=== PATIENT | female | born 1995 | race Caucasian/White ===

== ENCOUNTER 2019-08-13 19:40 | Emergency (ER) | payer SELFPAY ==
[2019-08-13 19:49] VITALS: BP 114/77; PULSE 104; RESP 17; TEMP 36.9; O2SAT 98; BMI 21.4
--- NOTE | 2019-08-13 20:08 | ED_ITS ---
Entered by Elis Alcantar, acting as scribe for Hollie Ferrera Aug 13, 2019 19:40 HPI - Fever General: Chief Complaint: Fever Stated Complaint: chills/migraine/congestion x 4 days Time Seen by Provider: 08/13/19 20:06 Source: patient Mode of arrival: ambulatory Limitations: no limitations History of Present Illness: HPI Narrative: 23 yo f came to the er for m igraine, fever, cough and congestion. Onset was 4 days ago. Pt states that she has not had a migraine before. Pt states that her cough is productive and green colored. MD elicited complaint: fever and other Onset (ago): day(s) (4 days ago) Context: sick contacts Exacerbating factors: nothing Relieving factors: nothing Associated symptoms: Reports chills and cough; Deny abdominal pain, back/flank pain, chest pain, confusion, diarrhea, dysuria, extremity pain, nausea or vomiting Review of Systems General: Reports: other (negative unless marked) Const: Reports: fever, chills, body aches, fatigue and malaise; Denies: diaphoresis Eyes: Denies: change in vision or blurry vision ENMT: Denies: throat pain, painful swallowing, hoarseness, ear pain, ear discharge, Change in hearing or nasal discharge Card: Denies: chest pain, palpitations, irregular heart rhythm, syncope, pre- syncope, shortness of breath on exertion or shortness of breath when lying down Resp: Reports: productive cough and chest congestion; Denies: shortness of breath, wheezing or coughing up blood GI: Denies: abdominal pain, nausea, vomiting, vomiting blood, coffee grounds in vomit, diarrhea, constipation, cramping, blood in stool or black tarry stool : Denies: flank pain, painful urination, urinary frequency, urinary urgency, decreased urine ouput, urinary incontinence or blood in urine Musc: Denies: neck pain, back pain, extremity pain, extremity swelling, joint pain, joint swelling, joint warmth or joint stiffness Skin/Breast: Denies: rash, skin tenderness or yellow skin Neuro: Denies: numbness in extremities, weakness in extremities, changes in sensation, lack of coordination, difficulty walking, dizziness, vertigo or confusion Endo: Denies: excessive thirst, tired all the time, cold intolerance, excessive sweating, flushing or hot flashes Nithin/Lymph: Denies: easy bruising, easy bleeding, petechiae or enlarged lymph nodes All/Imm: Denies: hives, throat swelling, tongue swelling, facial swelling or acute wheezing PFSH ED PFSH: Social History Smoking and tobacco status: never smoked Physical Exam Const: COMMON NORMALS: no apparent distress, oriented x3, no limitations, healthy appearing and well nourished EXAM LIMITATIONS: no altered mental status GENERAL APPEARANCE: cooperative, well kempt and well developed ORIENTATION/CONSCIOUSNESS: Yes awake HENMT: COMMON NORMALS: normocephalic, head/scalp atraumatic, hearing grossly normal bilaterally, external ears normal, EAC's normal, external nose normal and moist oral mucous membranes HEAD & SCALP: normal to inspection, normocephalic and atraumatic FACE & SINUS: normal facial exam and face symmetric NOSE: external nose normal and nares normal EXTERNAL EAR: Yes external ears normal EXTERNAL AUDITORY CANAL: EAC's normal MOUTH: oral and palatal mucosa normal and tongue normal Eye: COMMON NORMALS: PERRL, EOMs intact bilaterally, conjunctivae normal and no scleral icterus GENERAL EYE: normal appearance of both eyes and normal light reflex CONJUNCTIVA: Yes conjunctivae normal SCLERA: sclerae normal CORNEA: Yes corneas normal PUPIL: Yes PERRL DIRECT OPHTHALMOSCOPY: Yes normal light reflex Neck/C-Spine: COMMON NORMALS: full ROM, no lymphadenopathy, supple, no meningeal signs and no JVD GENERAL: Yes normal visual inspection and Yes trachea midline CERVICAL SPINE: Yes cervical ROM normal Chest: COMMONS NORMALS: inspection of chest normal and palpation of chest normal Resp: COMMON NORMALS: normal respiratory effort, no retractions, no use of accessory muscles and clear to auscultation bilaterally EFFORT & INSPECTION: Yes able to speak in complete sentences AUSCULTATION: clear to auscultation bilaterally Cardio: COMMON NORMALS: no JVD, regular rate, regular rhythm, S1 normal heart sound, S2 normal heart sound, no gallops, no clicks, no murmurs and no rub JUGULAR VENOUS DISTENTION: no JVD RATE: regular rate RHYTHM: regular rhythm HEART SOUNDS: S1 normal and S2 normal GI: COMMON NORMALS: soft to palpation, non-tender, no hepatosplenomegaly and no masses INSPECTION: Yes normal to inspection PALPATION: Yes soft and Yes no hepatosplenomegaly : COMMON NORMALS: Yes no CVA tenderness BLADDER/KIDNEY EXAM: Yes no CVA tenderness Back/Pelvis: COMMON NORMALS: no CVA tenderness, thoracic and lumbar spine normal to inspection, no thoracic nor lumbar tenderness and thoraco-lumbar ROM normal Extremity: COMMON NORMALS: normal to inspection, full ROM, normal capillary refill, no joint enlargement, no clubbing, cyanosis or edema and no calf tenderness Neuro: COMMON NORMALS: oriented x3, CN's II-XII intact bilaterally, moves all extremities, no focal motor deficits and no sensory deficits noted MENINGEAL SIGNS: Yes no meningeal signs Psych: COMMON NORMALS: mental status grossly normal, thought process normal, cooperative, affect normal, speech normal and activity/motor behavior normal APPEARANCE: Yes well kempt SPEECH: Yes normal speech THOUGHT PROCESS: normal thought process Skin: COMMON NORMALS: no rashes or lesions noted, skin turgor normal, no jaundice, no petechiae and no mottling GENERAL SKIN EXAM: no rashes or lesions noted and turgor normal Course Vital Signs: Vital signs: Vital Signs Temperature 98.5 F 08/13/19 19:49 Pulse Rate 91 08/13/19 21:20 Respiratory Rate 16 08/13/19 21:20 Blood Pressure 101/66 08/13/19 21:20 Pulse Oximetry 96 08/13/19 21:20 MDM - Fever MDM Narrative: Medical decision making narrative: Blanca is a nice 23-year-old female who comes in complaining of flulike symptoms. She does need to have the flu. She is relieved to hear that she has an answer for her s ymptoms. She agrees to return should her symptoms change or worsen but at this time she is feeling better and would like to be discharged. Lab Data: Attestation: I reviewed the patient's lab results. Labs: Lab Results 08/13/19 Range/Units 20:05 Influenza Type A A g Positive H (Negative) POC Influenza B Ag Negative (Negative) Discharge Plan Discharge Patient Disposition: Home, Self-Care Clinical Impression: Influenza Condition: Stable Prescriptions: New Tamiflu 75 mg capsule 75 mg PO DAILY 5 Days Qty: 10 RF: 0 No Action No Known Home Medications RF: 0 Discharge Orders: Discharge Order (Routine); Ordered 08/13/19 Ordered By: Hollie De Los Santos: Todd Ambrocio MD [Primary Care Provider] - 4-7 days Discharge Diet: Advance as tolerated Discharge Activity: Increase activity as tolerated Patient Instructions: Influenza (ED) Activity Restrictions/Additional Instructions: Please return to the ER immediately for any of the signs or symptoms listed on your discharge instruction sheets, worsening/changing of your symptoms, you are not getting better as quickly as expected, or for ANY other cause or concerns. Stand Alone Forms: Work/School Release Discharge Date/Time: 08/13/19 21:21 Coding Level of Care Code ED Palletizer for Chg Fwd The documentation recorded by the Ortiz howard Stephanie Lyn, accurately reflects the service I personally performed and the decisions made by Iban aguirre Eli N Aug 13, 2019 19:40
--- NOTE | 2019-08-13 20:10 | XR_ITS ---
WS: [id number] Portable AP upright chest, 08/13/2019 Clinical Data: cough Comparison: None. Findings: No nodules, masses or effusions are seen. The heart is normal. The pulmonary vascularity is not increased. No pneumonia or pneumothorax is seen. There is a minimal dextroscoliosis of the thora cic spine. XR/XR chest 1V portable [id number] Impression: Negative chest.
[2019-08-13] MEDS: ibuprofen 200 mg Tablet PO (20:19)
[2019-08-13] MEDS: acetaminophen 500 mg Tablet 1000 MG PO (20:20)
[2019-08-13 20:24] VITALS: PULSE 86; RESP 16; O2SAT 97
[2019-08-13] MEDS: ipratropium-albuterol 3 mL Neb INHALATION (20:24)
[2019-08-13 20:27] VITALS: PULSE 94; RESP 16; O2SAT 97
[2019-08-13 20:40] LABS: Influenza A by IFA Positive (Negative); Influenza B by IFA Negative (Negative)
[2019-08-13] MEDS: oseltamivir phosphate 75 mg Capsule PO (21:19)
[2019-08-13 21:20] VITALS: BP 101/66; PULSE 91; RESP 16; O2SAT 96
== END 2019-08-13 21:21 | disposition home or self-care (01) ==
PROVIDERS: Emergency Provider Emergency Medicine; PCP Family Medicine
DX: J11.1 Influenza due to unidentified influenza virus with other respiratory manifestations (principal)
CPT/HCPCS: 71045; 87804; 94640; 99281; 99283

== ENCOUNTER 2019-08-26 03:31 | Emergency (ER) | payer SELFPAY ==
[2019-08-26 03:35] VITALS: BP 116/71; PULSE 77; RESP 14; TEMP 36.7; O2SAT 100; BMI 22.1
--- NOTE | 2019-08-26 03:46 | ED_ITS ---
HPI - Ear Problem General: Chief complaint: Ear Stated complaint: ear pain Time Seen by Provider: 08/26/19 03:41 History of Present Illness: MD Complaint: ear pain Location: right ear Duration: constant Severity: severe Relieving factors: nothing Exacerbating factors: position of head Context: recent illness Discharge from ear: no Associated symptoms: Reports ear or mastoid pain, headache(s) and rhinorrhea; Denies fever(s) Treatment prior to arrival: none Review of Systems Const: Reports: body aches; Denies: fever or chills Eyes: Denies: change in vision or blurry vision ENMT: Reports: ear pain and nasal congestion; Denies: throat pain, painful swallowing, swelling of lips/tongue or ear discharge Card: Reports: chest pain and palpitations; Denies: edema Resp: Reports: shortness of breath and productive cough; Denies: wheezing GI: Denies: abdominal pain or vomiting : Denies: flank pain or difficulty urinating Skin/Breast: Denies: rash Neuro: Reports: headache PFSH ED PFSH: Social History Smoking and tobacco status: never smoked Female Reproductive History: Date of last menstrual period: 07/21/19 Physical Exam Const: COMMON NORMALS: oriented x3 and healthy appearing O RIENTATION/CONSCIOUSNESS: Yes awake, Yes oriented to person, Yes oriented to place and Yes oriented to time HENMT: COMMON NORMALS: normocephalic, external ears normal and external nose normal HEAD & SCALP: normocephalic FACE & SINUS: normal facial exam and face symmetric NOSE: external nose normal and mucous membranes and turbinates abnormal boggy and erythematous GENERAL EAR: hearing not grossly impaired EXTERNAL EAR: Yes external ears normal EXTERNAL AUDITORY CANAL: EAC abnormal EAC laterality: right Details: erythema, edema and EAC tenderness TYMPANIC MEMBRANE: TM normal on the left and TM abnormal TM laterality: right Details: bulging, dull and fluid behind TM MOUTH: oral and palatal mucosa normal THROAT: posterior oropharynx normal Eye: COMMON NORMALS: PERRL, EOMs intact bilaterally and conjunctivae normal CONJUNCTIVA: Yes conjunctivae normal PUPIL: Yes PERRL Chest: COMMONS NORMALS: inspection of chest normal Resp: COMMON NORMALS: normal respiratory effort, no retractions, no use of accessory muscles and clear to auscultation bilaterally AUSCULTATION: clear to auscultation bilaterally, no wheezes and lung sounds not diminished Cardio: COMMON NORMALS: regular rate and regular rhythm RATE: regular rate RHYTHM: regular rhythm HEART SOUNDS: no murmurs GI: COMMON NORMALS: soft to palpation INSPECTION: Yes normal to inspection AUSCULTATION: Yes normoactive bowel sounds PALPATION: Yes soft and No tender Neuro: COMMON NORMALS: oriented x3 SENSORIUM/ORIENTATION: Yes oriented to person, Yes oriented to place and Yes oriented to time Course Vital Signs: Vital signs: Vital Signs Temperature 98.1 F 08/26/19 03:35 Pulse Rate 77 08/26/19 03:35 Respiratory Rate 14 08/26/19 03:35 Blood Pressure 116/71 08/26/19 03:35 Pulse Oximetry 100 08/26/19 03:35 Discharge Plan Discharge Patient Disposition: Home, Self-Care Clinical Impression: Otitis media Qualifiers: Otitis media type: serous Chronicity: acute Laterality: right Recurrence: non- recurrent Qualified Code(s): H65.01 - Acute serous otitis media, right ear Condition: Stable Prescriptions: New Augmentin 875-125 mg tablet 1 tab PO BID Qty: 20 RF: 0 EC-Naproxen 500 mg tablet,delayed release (DR/EC) 500 mg PO BID PRN (Reason: pain) Qty: 14 RF: 0 Discharge Orders: Discharge Order (Routine); Ordered 08/26/19 Ordered By: Thomas Mujica Discharge Diet: Usual diet Discharge Activity: Increase activity as tolerated Patient Instructions: Otitis Media (ED) Activity Restrictions/Additional Instructions: Antibiotics as directed. Antibiotic drops as directed as well. You may use the pain drops up to every 4 hours during the day. Return for continued fever greater than 100 despite 2-3 doses of antibiotics, worsening pain or hearing despite treatment, other concerning symptoms. Discharge Date/Time: 08/26/19 04:11 Coding Level of Care Code ED Parts Specialist for Mary Garcia
[2019-08-26] MEDS: amoxicillin-clav 875-125 mg Tablet 1 TAB PO (04:01)
[2019-08-26] MEDS: tetracaine 0.5% Op Soln 4 mL Btl 4 DROP XX (04:03)
[2019-08-26] MEDS: ciprofloxacin-dexameth Otic Susp 7.5 mL Btl 4 DROP EAR-RIGHT (04:04)
== END 2019-08-26 04:11 | disposition home or self-care (01) ==
PROVIDERS: Emergency Provider Emergency Medicine
DX: H66.91 Otitis media, unspecified, right ear (principal)
CPT/HCPCS: 12345; 99281; 99283